=== PATIENT | female | born 1980 | race Caucasian/White ===

== ENCOUNTER 2017-06-11 22:48 | Emergency (ER) | payer OTHER ==
[2017-06-11] MEDS ORDERED: Ondansetron HCl/PF 4 MG/2 ML Vial ONE (23:28)
[2017-06-11 23:50] LABS: #Basophils 0.1 thou/uL (0.0-0.2); #Eosinphils 0.1 thou/uL (0.0-0.7); #Lymphocytes 3.1 thou/uL (1.20-3.40); #Monocytes 0.8 thou/uL (0.11-0.59); #Neutrophils 7.1 thou/uL (1.40-6.50); %Basophils 0.6 % (0.0-1.0); %Eosinophils 0.6 % (0.0-10.0); %Lymphocytes 27.8 % (21.0-51.0); %Monocytes 7.2 % (0.0-10.0); %Neutrophils 63.8 % (42.0-75.0); Hemoglobin 15.3 g/dL (12.0-16.0); Mean Corpuscular HGB CONC 33.7 g/dL (32.0-36.0); Mean Corpuscular Hemoglobin 32.1 pg (27.0-31.0); Mean Corpuscular Volume 95.3 fl (81.0-99.0); Platelet Count 295 thou/uL (130-400); RBC Distribution Width 11.9 % (11.5-14.5); Red Blood Cell (RBC) Count 4.76 mill/uL (4.20-5.40); White Blood Cell (WBC) Count 11.1 thou/uL (4.8-10.8)
[2017-06-11 23:51] LABS: Bilirubin Negative (Negative); Blood, Urine Negative (Negative); Clarity CLEAR (Clear); Glucose, Urine (Dipstick) Negative (Negative); Leukocyte Negative (Negative); Nitrite Negative (Negative); Protein, Urine (Dipstick) Negative (Neg-Trace); Specific Gravity, Urine 1.007 (1.002-1.036); Urobilinogen 0.2 mg/dL (0.2-1.0); pH, Urine 6.5 (5.0-9.0)
[2017-06-12 00:06] LABS: BHCG - Serum Negative (NEGATIVE); Pregs Control Background? CLEAR/WHITE (CLR/WHITE); Pregs Control Bar Appear? YES (CONTROL BAR)
[2017-06-12 00:13] LABS: ALT (SGPT) 22 U/L (8-55); AST (SGOT) 24 U/L (5-34); Alkaline Phosphatase 77 U/L (40-150); Anion Gap 13 mmol/L (10-20); BUN (Urea Nitrogen) 8 mg/dL (7.0-18.7); Bilirubin, Total 0.7 mg/dL (0.2-1.2); CK (CPK) 46 U/L (29-168); Calc. Creatinine Clearance 0 mL/min (70-130); Calcium 9.4 mg/dL (7.8-10.44); Carbon Dioxide 25 mmol/L (22-29); Chloride 101 mmol/L (98-107); Estimated GFR-MDRD 87; Globulin 3.8 g/dL (2.4-3.5); Glucose 97 mg/dL (70-105); Potassium 4.3 mmol/L (3.5-5.1); Protein, Total 7.8 g/dL (6.0-8.3); Sodium 135 mmol/L (136-145)
== END 2017-06-12 00:46 | disposition home or self-care (01) ==
LOC: ERS 22:48
DX: R11.2 Nausea with vomiting, unspecified (principal); R20.2 Paresthesia of skin; F41.9 Anxiety disorder, unspecified
CPT/HCPCS: 80053; 81003; 82550; 84703; 85025; 96374; J2405

== ENCOUNTER 2017-07-28 08:02 | Emergency (ER) | payer OTHER ==
[2017-07-28 08:35] LABS: #Lymphocytes 1.6 thou/uL (1.20-3.40); #Monocytes 0.7 thou/uL (0.11-0.59); #Neutrophils 2.6 thou/uL (1.40-6.50); %Basophils 0.4 % (0.0-1.0); %Eosinophils 0.9 % (0.0-10.0); %Lymphocytes 32.9 % (21.0-51.0); %Monocytes 13.1 % (0.0-10.0); %Neutrophils 52.7 % (42.0-75.0); Mean Corpuscular HGB CONC 33.2 g/dL (32.0-36.0); Mean Corpuscular Hemoglobin 31.5 pg (27.0-31.0); Mean Corpuscular Volume 94.9 fl (81.0-99.0); Mean Platelet Volume 6.9 fL (7.4-10.4); Platelet Count 300 thou/uL (130-400); RBC Distribution Width 11.6 % (11.5-14.5); Red Blood Cell (RBC) Count 5.09 mill/uL (4.20-5.40)
[2017-07-28 08:58] LABS: ALT (SGPT) 22 U/L (8-55); AST (SGOT) 20 U/L (5-34); Albumin 4.1 g/dL (3.5-5.0); Alkaline Phosphatase 65 U/L (40-150); Anion Gap 12 mmol/L (10-20); BUN (Urea Nitrogen) 8 mg/dL (7.0-18.7); Bilirubin, Total 0.7 mg/dL (0.2-1.2); Calc. Creatinine Clearance 0 mL/min (70-130); Carbon Dioxide 22 mmol/L (22-29); Chloride 105 mmol/L (98-107); Estimated GFR-MDRD 78; Globulin 3.5 g/dL (2.4-3.5); Glucose 97 mg/dL (70-105); Potassium 3.6 mmol/L (3.5-5.1); Protein, Total 7.6 g/dL (6.0-8.3); Sodium 135 mmol/L (136-145)
[2017-07-28 10:14] LABS: Bilirubin Moderate (Negative); Blood, Urine Large (Negative); Clarity CLOUDY (Clear); Glucose, Urine (Dipstick) Negative (Negative); Leukocyte Moderate (Negative); Nitrite Negative (Negative); Protein, Urine (Dipstick) 100 mg/dL (Neg-Trace); Specific Gravity, Urine 1.019 (1.002-1.036); Urobilinogen 0.2 mg/dL (0.2-1.0); pH, Urine 5.5 (5.0-9.0)
[2017-07-28 10:16] LABS: Hyaline Casts/LPF 0-3 HYALINE CAST LPF (0-3 Hyaline)
[2017-07-28 10:19] LABS: Pregnancy Test - Urine (BHCG) Negative (Negative); Pregu Control Background? CLEAR/WHITE (CLR/WHITE); Pregu Control Bar Appear? YES (CONTROL BAR); Specific Gravity 1.019 (1.002-1.036); Yeast-AUWi Flag 32.1 (0-25.0)
[2017-07-28 10:28] LABS: Bacteria/HPF 2+ HPF (None Seen); Squamous Epithelial 0-3 HPF (0-3); Yeast-All Forms None Seen HPF (None Seen)
[2017-07-28] MEDS ORDERED: Promethazine HCl 25 MG/ML VIAL ONE (10:42)
== END 2017-07-28 15:08 | disposition home or self-care (01) ==
LOC: ERS 08:02
DX: E86.0 Dehydration (principal); R11.2 Nausea with vomiting, unspecified; R19.7 Diarrhea, unspecified; F41.0 Panic disorder [episodic paroxysmal anxiety]
CPT/HCPCS: 36415; 80053; 81003; 81015; 81025; 83630; 85025; 87045; 87046; 87324; 87449; 87899; 93005; 96361; 96365; J2550

== ENCOUNTER 2018-04-20 15:02 | Outpatient (CLI) | payer OTHER ==
--- NOTE | 2018-04-20 16:01 | ULT ---
THYROID ULTRASOUND: 04/20/18 HISTORY: Elevated TSH. Real time imaging of the right and left lobes of the thyroid were performed. The right lobe measures 1.1 x 1.5 x 3.4 cm. Left lobe 1.2 x 1.4 x 4.2 cm. Two tiny cysts are identified within the right lobe , one measuring 2 and one measuring 6 mm in size. IMPRESSION: Essentially unremarkable thyroid ultrasound. POS: [facility]
== END 2018-04-20 15:03 | disposition home or self-care (01) ==
LOC: BICULT 15:02
PROVIDERS: ATTEND Nurse Practitioner Family
DX: R79.89 Other specified abnormal findings of blood chemistry (principal); B34.9 Viral infection, unspecified; F41.8 Other specified anxiety disorders; E66.01 Morbid (severe) obesity due to excess calories
CPT/HCPCS: 76536

== ENCOUNTER 2018-10-12 14:24 | Outpatient (CLI) | payer OTHER ==
--- NOTE | 2018-10-12 15:26 | RAD ---
LEFT KNEE 4 VIEWS: HISTORY: Pain and effusion. COMPARISON: None. FINDINGS: No fracture. No malalignment. No significant joint space narrowing. There appears to be a moderate joint effusion. IMPRESSION: No acute osseous abnormality. Moderate joint effusion. POS: HOME
== END 2018-10-12 14:25 | disposition home or self-care (01) ==
LOC: RAD-FRANK 14:24
PROVIDERS: ATTEND Internal Medicine
DX: M25.462 Effusion, left knee (principal)

== ENCOUNTER 2021-04-19 15:04 | Outpatient (CLI) | payer BC | END 2021-04-19 15:05 | disposition home or self-care (01) | LOC: BICMAMMO 15:04 | PROVIDERS: ATTEND Nurse Practitioner Family | DX: Z12.31 Encounter for screening mammogram for malignant neoplasm of breast (principal); Z80.3 Family history of malignant neoplasm of breast | CPT/HCPCS: 77063; 77067 ==